=== PATIENT | male | born 1955 | race Caucasian/White ===

== ENCOUNTER 2021-12-02 23:36 | Emergency (ER) | payer MEDICARE ==
[~2021-12-02] VITALS: Ht 182.9 cm; Wt 79.4 kg
[2021-12-03 00:12] LABS: BASOPHILS % 0.6 % (0.0-1.0); EOSINOPHILS # (AUTO) 0.2 (0.0-0.4); EOSINOPHILS % 2.3 % (0.0-6.0); HEMATOCRIT 39.4 % (38.2-49.6); HEMOGLOBIN 12.3 g/dL (14.0-18.0); LYMPHOCYTES # (AUTO) 1.4 (1.0-3.2); LYMPHOCYTES % 20.9 % (18.0-39.1); MEAN CORPUSCULAR HEMOGLOBIN 28.5 pg (28-32); MEAN CORPUSCULAR HGB CONC 31.2 g/dL (31-35); MEAN CORPUSCULAR VOLUME 91.2 fL (81-99); MONOCYTES # (AUTO) 0.5 (0.2-0.8); MONOCYTES % 8.2 % (4.4-11.3); NEUTROPHILS # (AUTO) 4.4 (2.1-6.9); NEUTROPHILS % 67.8 % (38.7-80.0); PLATELET COUNT 111 x10e3/uL (140-360); RED BLOOD COUNT 4.32 x10e6/uL (4.3-5.7); RED CELL DISTRIBUTION WIDTH 13.2 % (11.7-14.4)
[2021-12-03] MEDS ORDERED: KETOROLAC TROMETHAMINE 30 MG/ML VIAL IV STA (00:22)
[2021-12-03 00:28] LABS: ALANINE AMINOTRANSFERASE 28 IU/L (0-55); ALBUMIN 4.1 g/dL (3.5-5.0); ALBUMIN/GLOBULIN RATIO 1.2 (0.8-2.0); ALKALINE PHOSPHATASE 79 IU/L (40-150); BLOOD UREA NITROGEN 15 mg/dL (7-26); BUN/CREATININE RATIO 19 (6-25); CALCIUM 8.9 mg/dL (8.4-10.2); CARBON DIOXIDE 25 mmol/L (22-29); CHLORIDE 108 mmol/L (98-107); CREATINE KINASE 421 IU/L (30-200); GLUCOSE 127 mg/dL (74-118); SODIUM 143 mmol/L (136-145)
[2021-12-03] MEDS ORDERED: DIATRIZOATE MEGL/DIATRIZOA SOD 30 ML BTL PO ONE (00:30)
[2021-12-03 00:43] LABS: CLARITY,URINE CLEAR (CLEAR); COLOR,URINE YELLOW (YELLOW); KETONES,URINE NEGATIVE (NEGATIVE); LEUKOCYTE ESTERASE ,URINE NEGATIVE (NEGATIVE); NITRITE,URINE NEGATIVE (NEGATIVE); PROTEIN,URINE DIPSTICK NEGATIVE (NEGATIVE); URINE UROBILINOGEN 0.2 mg/dL (0.2 - 1)
[2021-12-03 00:53] LABS: BACTERIA,URINE FEW /HPF; EPITHELIAL CELLS,URINE FEW /LPF; MUCUS,URINE MODERATE (RARE); WBC,URINE (MAN) 0-5 /HPF (0-5)
== END 2021-12-03 02:38 | disposition home or self-care (01) ==
LOC: ER 23:50
DX: R10.30 Lower abdominal pain, unspecified (principal); K42.9 Umbilical hernia without obstruction or gangrene; K40.90 Unilateral inguinal hernia, without obstruction or gangrene, not specified as recurrent; I10 Essential (primary) hypertension; I25.10 Atherosclerotic heart disease of native coronary artery without angina pectoris; K21.9 Gastro-esophageal reflux disease without esophagitis; Z95.1 Presence of aortocoronary bypass graft; Z95.5 Presence of coronary angioplasty implant and graft; Z98.84 Bariatric surgery status
CPT/HCPCS: 36415; 74177; 80053; 81001; 82550; 82553; 83690; 84484; 85025; 93005; 99284; J1885; Q9963

== ENCOUNTER → 2022-03-13 | Day surgery (SDC) | payer MEDICARE ==
[2022-03-11 12:25] LABS: BASOPHILS # (AUTO) 0.1 (0.0-0.1); BASOPHILS % 0.8 % (0.0-1.0); EOSINOPHILS # (AUTO) 0.3 (0.0-0.4); EOSINOPHILS % 4.1 % (0.0-6.0); HEMATOCRIT 44.1 % (38.2-49.6); HEMOGLOBIN 13.6 g/dL (14.0-18.0); LYMPHOCYTES # (AUTO) 2.2 (1.0-3.2); LYMPHOCYTES % 32.7 % (18.0-39.1); MEAN CORPUSCULAR HEMOGLOBIN 29.2 pg (28-32); MEAN CORPUSCULAR HGB CONC 30.8 g/dL (31-35); MEAN CORPUSCULAR VOLUME 94.6 fL (81-99); MONOCYTES # (AUTO) 0.6 (0.2-0.8); NEUTROPHILS # (AUTO) 3.6 (2.1-6.9); NEUTROPHILS % 53.2 % (38.7-80.0); PLATELET COUNT 133 x10e3/uL (140-360); RED BLOOD COUNT 4.66 x10e6/uL (4.3-5.7); RED CELL DISTRIBUTION WIDTH 13.3 % (11.7-14.4)
[~2022-03-13] MED LIST: BUPIVACAINE HCL 0.5% INJ 30 ML VIAL INJ ONE; BUPRENORPHIN-N1 EACH SL; CLOPIDOGREL75 MG PO; DEXAMETHASONE SOD PHOS INJ 4 MG/ML SDV ONE; FENTANYL CITRATE/PF 100MCG/2 ML INJ ONE; IMDUR PO; KETAMINE HCL INJ 50 MG/ML 10 ML VIAL ONE; LIDOCAINE HCL 2% LOCAL INJ 5 ML SDV VIAL INJ ONE; LIPITOR20 MG PO; METOPROLOL PO; ONDANSETRON HCL INJ 2MG/ML 2ML 2 MG/ML VIAL ONE; POVIDONE IODINE 0.05% 0.05 % ML PO ONE; PROPOFOL IV EMULSION 10 MG/ML 20 ML VIAL ONE; PROTONIX20 MG PO; SEVOFLURANE INHAL SOLN 250 ML PEN BTL ONE; VITAMIN B-1100 M1 PO; VITAMIN B122500 MCG PO; VITAMIN D3125 MCG PO; [UNRECOGNIZED DRUG - OTHER] PO; [UNRECOGNIZED DRUG - OTHER] PO
[2022-03-13 14:15] VITALS: BP 138/87
== END | disposition home or self-care (01) ==
LOC: OR 10:16
PROVIDERS: ATTEND Podiatrist Foot & Ankle Surgery
DX: M20.41 Other hammer toe(s) (acquired), right foot (principal); M21.271 Flexion deformity, right ankle and toes; G47.33 Obstructive sleep apnea (adult) (pediatric); J44.9 Chronic obstructive pulmonary disease, unspecified; I25.2 Old myocardial infarction; I10 Essential (primary) hypertension; E78.5 Hyperlipidemia, unspecified; I25.810 Atherosclerosis of coronary artery bypass graft(s) without angina pectoris; E03.9 Hypothyroidism, unspecified; G89.29 Other chronic pain; Z01.810 Encounter for preprocedural cardiovascular examination; Z01.812 Encounter for preprocedural laboratory examination; Z01.818 Encounter for other preprocedural examination; Z79.02 Long term (current) use of antithrombotics/antiplatelets; Z79.899 Other long term (current) drug therapy; Z95.1 Presence of aortocoronary bypass graft; Z95.5 Presence of coronary angioplasty implant and graft; Z86.19 Personal history of other infectious and parasitic diseases; Z87.891 Personal history of nicotine dependence
CPT/HCPCS: 28285; 28308; 36415; 71046; 85025; 93005; C1713 ×2; J0690; J1100; J2001; J2405; J2704; J3010

== ENCOUNTER 2022-05-21 18:31 | Inpatient (IN) | payer MEDICARE ==
[~2022-05-21] VITALS: Ht 182.9 cm; Wt 82.1 kg
[~2022-05-21 18:31] MED LIST changes: -BUPIVACAINE HCL 0.5% INJ 30 ML VIAL INJ ONE; +EPHEDRINE SULFATE INJ 50 MG/ML VIAL ONE; -FENTANYL CITRATE/PF 100MCG/2 ML INJ ONE; -KETAMINE HCL INJ 50 MG/ML 10 ML VIAL ONE
[2022-05-21] MEDS ORDERED: FENTANYL CITRATE/PF 100MCG/2 ML INJ ONE (18:40)
[2022-05-21 19:26] LABS: BASOPHILS # (AUTO) 0.1 (0.0-0.1); BASOPHILS % 0.5 % (0.0-1.0); EOSINOPHILS # (AUTO) 0.2 (0.0-0.4); EOSINOPHILS % 2.2 % (0.0-6.0); HEMATOCRIT 47.4 % (38.2-49.6); HEMOGLOBIN 14.3 g/dL (14.0-18.0); LYMPHOCYTES # (AUTO) 1.7 (1.0-3.2); LYMPHOCYTES % 18.3 % (18.0-39.1); MEAN CORPUSCULAR HEMOGLOBIN 29.7 pg (28-32); MEAN CORPUSCULAR HGB CONC 30.2 g/dL (31-35); MEAN CORPUSCULAR VOLUME 98.3 fL (81-99); MONOCYTES # (AUTO) 0.7 (0.2-0.8); MONOCYTES % 7.8 % (4.4-11.3); NEUTROPHILS # (AUTO) 6.7 (2.1-6.9); PLATELET COUNT 141 x10e3/uL (140-360); RED BLOOD COUNT 4.82 x10e6/uL (4.3-5.7); RED CELL DISTRIBUTION WIDTH 12.9 % (11.7-14.4)
[2022-05-21] MEDS ORDERED: DIATRIZOATE MEGL/DIATRIZOA SOD 30 ML BTL PO ONE (19:36)
[2022-05-21 19:46] LABS: ALBUMIN 4.2 g/dL (3.5-5.0); ALBUMIN/GLOBULIN RATIO 1.2 (0.8-2.0); ANION GAP 18.8 mmol/L (8-16); CALCIUM 9.6 mg/dL (8.4-10.2); CREATININE, SERUM 0.96 mg/dL (0.72-1.25); POTASSIUM 4.8 mmol/L (3.5-5.1)
[2022-05-21 20:00] VITALS: BP 134/70
[2022-05-21 20:04] LABS: CLARITY,URINE CLEAR (CLEAR); COLOR,URINE YELLOW (YELLOW); KETONES,URINE TRACE (NEGATIVE); LEUKOCYTE ESTERASE ,URINE NEGATIVE (NEGATIVE); NITRITE,URINE NEGATIVE (NEGATIVE); PROTEIN,URINE DIPSTICK 1+ (NEGATIVE); URINE UROBILINOGEN 0.2 mg/dL (0.2 - 1)
[2022-05-21 20:15] LABS: BACTERIA,URINE FEW /HPF; EPITHELIAL CELLS,URINE RARE /LPF; WBC,URINE (MAN) 0-5 /HPF (0-5)
[2022-05-21] MEDS ORDERED: IOPAMIDOL 370 MG/ML 100 ML INFUS..BTL INJ ONE (20:31)
[2022-05-21] MEDS ORDERED: ONDANSETRON HCL INJ 2MG/ML 2ML 2 MG/ML VIAL IV PRN (22:15)
[2022-05-21] MEDS: SODIUM CHLORIDE 0.9% 1000ML 1,000 ML IV SCH (22:34)
[2022-05-21] MEDS: Morphine 4mg INJECTION 4 MG/ML INJ IV PRN (22:36)
[2022-05-21] MEDS ORDERED: ONDANSETRON HCL INJ 2MG/ML 2ML 2 MG/ML VIAL ONE (22:37)
[2022-05-21] MEDS ORDERED: CEFTRIAXONE 1 GM VIAL ONE (22:37)
[2022-05-21] MEDS ORDERED: SODIUM CHLORIDE 0.9% 1000ML 1,000 ML ONE (22:37)
[2022-05-21] MEDS ORDERED: Morphine 2mg Syringe 2 MG/ML SYR ONE (22:40)
[2022-05-21 23:39] VITALS: BP 134/70
[2022-05-21] MEDS ORDERED: SIMETHICONE 80 MG CHEW PO PRN (23:45)
[2022-05-21] MEDS ORDERED: DOCUSATE SODIUM 100 MG CAP PO PRN (23:45)
[2022-05-21] MEDS ORDERED: ALBUTEROL/IPRATROPIUM 3 ML NEB NEB PRN (23:45)
[2022-05-21] MEDS ORDERED: HYDRALAZINE HCL 20 MG/ML VIAL IV PRN (23:45)
[2022-05-21] MEDS ORDERED: DIPHENHYDRAMINE HCL 25 MG CAP PO PRN (23:45)
[2022-05-21] MEDS ORDERED: BENZONATATE 100 MG CAP PO PRN (23:45)
[2022-05-21] MEDS ORDERED: MELATONIN 5 MG TABLET PO PRN (23:45)
[2022-05-21] MEDS ORDERED: POTASSIUM CHLORIDE 20 MEQ TAB CR PO PRN (23:45)
[2022-05-21] MEDS ORDERED: LIDOCAINE 4% PATCH TP PRN (23:45)
[2022-05-21] MEDS ORDERED: DEXTROSE 50% SYRINGE 50 ML IV PRN (23:45)
[2022-05-22] VITALS (8 sets, daily range): BP systolic 100–147; BP diastolic 61–99
[2022-05-22] MEDS: Morphine 4mg INJECTION 4 MG/ML INJ IV PRN ×5 (06:18→21:51)
[2022-05-22 06:59] LABS: BASOPHILS % 0.5 % (0.0-1.0); EOSINOPHILS # (AUTO) 0.2 (0.0-0.4); EOSINOPHILS % 2.6 % (0.0-6.0); HEMATOCRIT 40.9 % (38.2-49.6); HEMOGLOBIN 12.4 g/dL (14.0-18.0); LYMPHOCYTES % 33.3 % (18.0-39.1); MEAN CORPUSCULAR HEMOGLOBIN 29.4 pg (28-32); MEAN CORPUSCULAR HGB CONC 30.3 g/dL (31-35); MEAN CORPUSCULAR VOLUME 96.9 fL (81-99); MONOCYTES # (AUTO) 0.7 (0.2-0.8); MONOCYTES % 11.2 % (4.4-11.3); NEUTROPHILS # (AUTO) 3.2 (2.1-6.9); NEUTROPHILS % 52.2 % (38.7-80.0); PLATELET COUNT 123 x10e3/uL (140-360); RED BLOOD COUNT 4.22 x10e6/uL (4.3-5.7); RED CELL DISTRIBUTION WIDTH 12.7 % (11.7-14.4)
[2022-05-22 07:23] LABS: ANION GAP 12.9 mmol/L (8-16); CALCIUM 8.6 mg/dL (8.4-10.2); CREATININE, SERUM 0.7 mg/dL (0.72-1.25); POTASSIUM 3.9 mmol/L (3.5-5.1)
[2022-05-22] MEDS: PANTOPRAZOLE SOD 40 MG TABEC PO SCH (08:19)
[2022-05-22] MEDS: SODIUM CHLORIDE 0.9% 1000ML 1,000 ML IV SCH ×2 (08:19→18:34)
[2022-05-22] MEDS ORDERED: FUROSEMIDE INJ 10 MG/ML 4 ML VIAL ONE (13:08)
[2022-05-22] MEDS: PHENAZOPYRIDINE HCL 100 MG TAB PO PRN ×2 (16:26→21:50)
[2022-05-23] VITALS (8 sets, daily range): BP systolic 95–131; BP diastolic 63–83
[2022-05-23] MEDS: HYDROMORPHONE 1MG/1ML INJ IV PRN ×7 (04:05→23:27)
[2022-05-23] MEDS: SODIUM CHLORIDE 0.9% 1000ML 1,000 ML IV SCH ×3 (04:09→20:59)
[2022-05-23 05:55] LABS: BASOPHILS % 0.6 % (0.0-1.0); EOSINOPHILS # (AUTO) 0.2 (0.0-0.4); EOSINOPHILS % 3.7 % (0.0-6.0); HEMATOCRIT 45.4 % (38.2-49.6); LYMPHOCYTES # (AUTO) 1.7 (1.0-3.2); LYMPHOCYTES % 33.4 % (18.0-39.1); MEAN CORPUSCULAR HEMOGLOBIN 29.7 pg (28-32); MEAN CORPUSCULAR HGB CONC 28.6 g/dL (31-35); MEAN CORPUSCULAR VOLUME 103.9 fL (81-99); MONOCYTES # (AUTO) 0.5 (0.2-0.8); MONOCYTES % 8.8 % (4.4-11.3); NEUTROPHILS # (AUTO) 2.7 (2.1-6.9); NEUTROPHILS % 53.3 % (38.7-80.0); PLATELET COUNT 114 x10e3/uL (140-360); RED BLOOD COUNT 4.37 x10e6/uL (4.3-5.7); RED CELL DISTRIBUTION WIDTH 13.1 % (11.7-14.4)
[2022-05-23 07:19] LABS: ALBUMIN 3.4 g/dL (3.5-5.0); ANION GAP 16.1 mmol/L (8-16); CALCIUM 8.8 mg/dL (8.4-10.2); CHOL/HDL RATIO 2.6 (3.9-4.7); CREATININE, SERUM 0.67 mg/dL (0.72-1.25); POTASSIUM 4.1 mmol/L (3.5-5.1)
[2022-05-23 07:28] LABS: THYROID STIMULATING HORMONE 2.473 uIU/mL (0.350-4.940)
[2022-05-23] MEDS ORDERED: METOPROLOL 25 MG PO SCH (09:00)
[2022-05-23] MEDS ORDERED: IMDUR PO SCH (09:00)
[2022-05-23] MEDS: PANTOPRAZOLE SOD 40 MG TABEC PO SCH (10:03)
[2022-05-23] MEDS: ISOSORBIDE MONONITRATE 30 MG TAB CR PO SCH (10:04)
[2022-05-23] MEDS: ATORVASTATIN 20 MG TAB PO SCH (10:04)
[2022-05-23] MEDS: METOPROLOL SUCCINATE 25 MG TAB XL PO SCH (10:17)
[2022-05-23] MEDS ORDERED: ONDANSETRON HCL 4 MG ORAL DISINTEGRATING TAB PO PRN (14:00)
[2022-05-23] MEDS: ACETAMINOPHEN 325 MG TAB PO PRN (20:08)
[2022-05-24] VITALS (8 sets, daily range): BP systolic 104–156; BP diastolic 63–90
[2022-05-24] MEDS: HYDROMORPHONE 1MG/1ML INJ IV PRN ×6 (02:25→22:35)
[2022-05-24] MEDS: SODIUM CHLORIDE 0.9% 1000ML 1,000 ML IV SCH (05:30)
[2022-05-24 07:05] LABS: BASOPHILS % 0.6 % (0.0-1.0); EOSINOPHILS # (AUTO) 0.2 (0.0-0.4); EOSINOPHILS % 4.5 % (0.0-6.0); HEMATOCRIT 41.6 % (38.2-49.6); HEMOGLOBIN 12.7 g/dL (14.0-18.0); LYMPHOCYTES % 39.9 % (18.0-39.1); MEAN CORPUSCULAR HEMOGLOBIN 29.6 pg (28-32); MEAN CORPUSCULAR HGB CONC 30.5 g/dL (31-35); MONOCYTES # (AUTO) 0.5 (0.2-0.8); MONOCYTES % 8.8 % (4.4-11.3); NEUTROPHILS # (AUTO) 2.4 (2.1-6.9); PLATELET COUNT 100 x10e3/uL (140-360); RED BLOOD COUNT 4.29 x10e6/uL (4.3-5.7); RED CELL DISTRIBUTION WIDTH 12.8 % (11.7-14.4)
[2022-05-24 07:41] LABS: ANION GAP 12.9 mmol/L (8-16); CALCIUM 8.4 mg/dL (8.4-10.2); CREATININE, SERUM 0.61 mg/dL (0.72-1.25); POTASSIUM 3.9 mmol/L (3.5-5.1)
[2022-05-24] MEDS ORDERED: IOPAMIDOL 610MG/1ML 300 MG/ML VIAL IV ONE (07:59)
[2022-05-24] MEDS: PANTOPRAZOLE SOD 40 MG TABEC PO SCH (09:25)
[2022-05-24] MEDS: METOPROLOL SUCCINATE 25 MG TAB XL PO SCH (09:28)
[2022-05-24] MEDS: ATORVASTATIN 20 MG TAB PO SCH (09:28)
[2022-05-24] MEDS: ISOSORBIDE MONONITRATE 30 MG TAB CR PO SCH (09:28)
[2022-05-24] MEDS ORDERED: TRAMADOL HCL 50 MG TAB PO PRN (12:00)
[2022-05-24] MEDS: LACTULOSE SYRUP 20 GM/30 ML UDC PO SCH ×2 (15:35→21:14)
[2022-05-24] MEDS: ACETAMINOPHEN 325 MG TAB PO PRN (15:43)
[2022-05-24] MEDS: KETOROLAC TROMETHAMINE 30 MG/ML VIAL IV SCH (17:32)
[2022-05-24] MEDS: DOCUSATE SODIUM 100 MG CAP PO SCH (17:32)
[2022-05-25] MEDS: KETOROLAC TROMETHAMINE 30 MG/ML VIAL IV SCH ×3 (00:38→12:22)
[2022-05-25 00:44] VITALS: BP 124/73
[2022-05-25 06:04] VITALS: BP 119/83
[2022-05-25 06:29] LABS: BASOPHILS % 0.1 % (0.0-1.0); EOSINOPHILS % 0.6 % (0.0-6.0); HEMATOCRIT 41.5 % (38.2-49.6); HEMOGLOBIN 12.7 g/dL (14.0-18.0); LYMPHOCYTES # (AUTO) 2.1 (1.0-3.2); LYMPHOCYTES % 29.6 % (18.0-39.1); MEAN CORPUSCULAR HEMOGLOBIN 29.5 pg (28-32); MEAN CORPUSCULAR HGB CONC 30.6 g/dL (31-35); MEAN CORPUSCULAR VOLUME 96.3 fL (81-99); MONOCYTES # (AUTO) 0.6 (0.2-0.8); MONOCYTES % 8.7 % (4.4-11.3); NEUTROPHILS # (AUTO) 4.3 (2.1-6.9); NEUTROPHILS % 60.7 % (38.7-80.0); PLATELET COUNT 129 x10e3/uL (140-360); RED BLOOD COUNT 4.31 x10e6/uL (4.3-5.7); RED CELL DISTRIBUTION WIDTH 12.4 % (11.7-14.4)
[2022-05-25 06:44] LABS: ANION GAP 13.9 mmol/L (8-16); CREATININE, SERUM 0.65 mg/dL (0.72-1.25); POTASSIUM 3.9 mmol/L (3.5-5.1)
[2022-05-25 07:41] VITALS: BP 126/78
[2022-05-25 08:11] VITALS: BP 126/78
[2022-05-25] MEDS: PANTOPRAZOLE SOD 40 MG TABEC PO SCH (08:26)
[2022-05-25] MEDS: METOPROLOL SUCCINATE 25 MG TAB XL PO SCH (08:30)
[2022-05-25] MEDS: ISOSORBIDE MONONITRATE 30 MG TAB CR PO SCH (08:32)
[2022-05-25] MEDS: LACTULOSE SYRUP 20 GM/30 ML UDC PO SCH (08:32)
[2022-05-25] MEDS: DOCUSATE SODIUM 100 MG CAP PO SCH (08:32)
[2022-05-25] MEDS: ATORVASTATIN 20 MG TAB PO SCH (08:34)
[2022-05-25] MEDS: HYDROMORPHONE 1MG/1ML INJ IV PRN (10:06)
[2022-05-25 12:48] VITALS: BP 127/77
[2022-05-25] MEDS ORDERED: CEFUROXIME250 MG PO (13:49)
[2022-05-25] MEDS ORDERED: ASPIRIN ENTERI325 MG PO (13:53)
== END 2022-05-25 14:51 | disposition home or self-care (01) | DRG 661 ==
LOC: ER 19:30 → ERHOLD 22:18 → MED/SURG3 23:29
PROVIDERS: ADMIT Internal Medicine; ATTEND Internal Medicine
PROC: 0T778DZ Dilation of Left Ureter with Intraluminal Device, Via Natural or Artificial Opening Endoscopic (ICD-10-PCS; principal; 2022-05-24 07:59)
PROC: BT1F1ZZ Fluoroscopy of Left Kidney, Ureter and Bladder using Low Osmolar Contrast (ICD-10-PCS; 2022-05-24 07:59)
DX: N13.1 Hydronephrosis with ureteral stricture, not elsewhere classified (principal); G89.4 Chronic pain syndrome; I25.10 Atherosclerotic heart disease of native coronary artery without angina pectoris; Z95.1 Presence of aortocoronary bypass graft; K40.90 Unilateral inguinal hernia, without obstruction or gangrene, not specified as recurrent; N13.2 Hydronephrosis with renal and ureteral calculous obstruction; R31.9 Hematuria, unspecified; D69.6 Thrombocytopenia, unspecified; R31.29 Other microscopic hematuria; Z20.822 Contact with and (suspected) exposure to COVID-19; E78.00 Pure hypercholesterolemia, unspecified; Z98.84 Bariatric surgery status; K59.00 Constipation, unspecified; I25.2 Old myocardial infarction; I95.2 Hypotension due to drugs; T40.605A Adverse effect of unspecified narcotics, initial encounter; Z95.5 Presence of coronary angioplasty implant and graft
CPT/HCPCS: 36415; 74176; 74420; 78708; 80048; 80053; 80061; 81001; 83690; 83735; 83880; 84443; 85025; 87086; 93005; 93306; 94799; 99252; 99284; A9562; C1758; C2617; J0692; J0696; J1100; J1170; J1885; J1940; J2001; J2270; J2405; J3010; J7030; Q9963; Q9967

== ENCOUNTER 2022-06-12 12:00 | Observation (INO) | payer MEDICARE ==
[~2022-06-12] VITALS: Ht 182.9 cm; Wt 82.1 kg
[~2022-06-12 12:00] MED LIST changes: +ASPIRIN ENTERI325 MG PO; +CEFTRIAXONE 1 GM VIAL ONE; +CEFUROXIME250 MG PO; +CORAL CALCIUM1 GM PO; -DEXAMETHASONE SOD PHOS INJ 4 MG/ML SDV ONE; -EPHEDRINE SULFATE INJ 50 MG/ML VIAL ONE; +FEROSUL325 MG PO; +ISOSORBIDE MONO30 MG PO; -LIDOCAINE HCL 2% LOCAL INJ 5 ML SDV VIAL INJ ONE; -ONDANSETRON HCL INJ 2MG/ML 2ML 2 MG/ML VIAL ONE; -POVIDONE IODINE 0.05% 0.05 % ML PO ONE; -PROPOFOL IV EMULSION 10 MG/ML 20 ML VIAL ONE; -SEVOFLURANE INHAL SOLN 250 ML PEN BTL ONE; +TOPROL XL25 MG PO
[2022-06-12] MEDS ORDERED: DEXAMETHASONE SOD PHOS INJ 4 MG/ML SDV ONE (12:24)
[2022-06-12] MEDS ORDERED: LIDOCAINE HCL 2% LOCAL INJ 5 ML SDV VIAL INJ ONE (12:24)
[2022-06-12] MEDS ORDERED: SEVOFLURANE INHAL SOLN 250 ML PEN BTL ONE (12:24)
[2022-06-12] MEDS ORDERED: POVIDONE IODINE 0.05% 0.05 % ML PO ONE (12:24)
[2022-06-12] MEDS ORDERED: ONDANSETRON HCL INJ 2MG/ML 2ML 2 MG/ML VIAL ONE (12:24)
[2022-06-12] MEDS ORDERED: PROPOFOL IV EMULSION 10 MG/ML 20 ML VIAL ONE (12:24)
[2022-06-12] MEDS ORDERED: IOPAMIDOL 370 MG/ML 100 ML INFUS..BTL INJ ONE (13:10)
[2022-06-12] MEDS ORDERED: FENTANYL CITRATE/PF 100MCG/2 ML INJ ONE (14:31)
[2022-06-12 14:43] LABS: BASOPHILS % 0.6 % (0.0-1.0); EOSINOPHILS # (AUTO) 0.2 (0.0-0.4); EOSINOPHILS % 3.3 % (0.0-6.0); HEMATOCRIT 45.4 % (38.2-49.6); HEMOGLOBIN 13.7 g/dL (14.0-18.0); LYMPHOCYTES # (AUTO) 1.1 (1.0-3.2); LYMPHOCYTES % 21.9 % (18.0-39.1); MEAN CORPUSCULAR HEMOGLOBIN 29.5 pg (28-32); MEAN CORPUSCULAR HGB CONC 30.2 g/dL (31-35); MEAN CORPUSCULAR VOLUME 97.6 fL (81-99); MONOCYTES # (AUTO) 0.3 (0.2-0.8); NEUTROPHILS # (AUTO) 3.6 (2.1-6.9); PLATELET COUNT 113 x10e3/uL (140-360); RED BLOOD COUNT 4.65 x10e6/uL (4.3-5.7); RED CELL DISTRIBUTION WIDTH 12.4 % (11.7-14.4)
[2022-06-12 15:00] VITALS: BP_SYST 128; BP_SYST 130; BP_DIAS 74; BP_DIAS 78
[2022-06-12] MEDS ORDERED: ACETAMINOPHEN 325 MG TAB PO PRN (16:30)
[2022-06-12] MEDS ORDERED: BENZONATATE 100 MG CAP PO PRN (16:30)
[2022-06-12] MEDS ORDERED: HYDRALAZINE HCL 20 MG/ML VIAL IV PRN (16:30)
[2022-06-12] MEDS ORDERED: DEXTROSE 50% SYRINGE 50 ML IV PRN (16:30)
[2022-06-12] MEDS ORDERED: SIMETHICONE 80 MG CHEW PO PRN (16:30)
[2022-06-12] MEDS ORDERED: DOCUSATE SODIUM 100 MG CAP PO PRN (16:30)
[2022-06-12] MEDS ORDERED: LIDOCAINE 4% PATCH TP PRN (16:30)
[2022-06-12] MEDS ORDERED: MELATONIN 5 MG TABLET PO PRN (16:30)
[2022-06-12] MEDS ORDERED: POTASSIUM CHLORIDE 20 MEQ TAB CR PO PRN (16:30)
[2022-06-12] MEDS ORDERED: DIPHENHYDRAMINE HCL 25 MG CAP PO PRN (16:30)
[2022-06-12] MEDS ORDERED: ALBUTEROL/IPRATROPIUM 3 ML NEB NEB PRN (16:30)
[2022-06-12 16:44] VITALS: BP 125/82
[2022-06-12] MEDS: METOPROLOL SUCCINATE 25 MG TAB XL PO SCH (17:00)
[2022-06-12] MEDS: ONDANSETRON HCL INJ 2MG/ML 2ML 2 MG/ML VIAL IV PRN ×2 (17:24→22:08)
[2022-06-12] MEDS: HYDROMORPHONE 1MG/1ML INJ IV PRN ×2 (17:25→22:07)
[2022-06-12] MEDS ORDERED: TAMSULOSIN HCL 0.4 MG CAP PO SCH (19:10)
[2022-06-12] MEDS: HYDROCODONE/APAP 5MG-325MG TAB PO PRN (19:39)
[2022-06-12] MEDS: DEXTROSE 5%/0.45% SOD CHL 1,000 ML IV SCH (22:58)
[2022-06-13] MEDS: HYDROCODONE/APAP 5MG-325MG TAB PO PRN ×2 (01:43→07:50)
[2022-06-13] MEDS: HYDROMORPHONE 1MG/1ML INJ IV PRN ×2 (05:05→09:32)
[2022-06-13] MEDS: DEXTROSE 5%/0.45% SOD CHL 1,000 ML IV SCH (05:26)
[2022-06-13 05:31] VITALS: BP 125/82
[2022-06-13 05:34] LABS: BASOPHILS % 0.3 % (0.0-1.0); EOSINOPHILS % 0.1 % (0.0-6.0); HEMATOCRIT 42.6 % (38.2-49.6); HEMOGLOBIN 12.8 g/dL (14.0-18.0); LYMPHOCYTES # (AUTO) 1.5 (1.0-3.2); LYMPHOCYTES % 22.2 % (18.0-39.1); MEAN CORPUSCULAR HEMOGLOBIN 29.3 pg (28-32); MEAN CORPUSCULAR VOLUME 97.5 fL (81-99); MONOCYTES # (AUTO) 0.5 (0.2-0.8); MONOCYTES % 7.5 % (4.4-11.3); NEUTROPHILS # (AUTO) 4.8 (2.1-6.9); NEUTROPHILS % 69.6 % (38.7-80.0); PLATELET COUNT 124 x10e3/uL (140-360); RED BLOOD COUNT 4.37 x10e6/uL (4.3-5.7)
[2022-06-13 05:46] LABS: CALCIUM 8.6 mg/dL (8.4-10.2); CREATININE, SERUM 0.66 mg/dL (0.72-1.25)
[2022-06-13] MEDS ORDERED: PANTOPRAZOLE SOD 40 MG TABEC PO SCH (07:30)
[2022-06-13] MEDS ORDERED: TAMSULOSIN HCL 0.4 MG CAP PO ONE (08:00)
[2022-06-13 08:27] VITALS: BP 115/74
[2022-06-13] MEDS: METOPROLOL SUCCINATE 25 MG TAB XL PO SCH (08:31)
[2022-06-13 08:44] VITALS: BP 115/74
[2022-06-13] MEDS ORDERED: ATORVASTATIN 20 MG TAB PO SCH (09:00)
[2022-06-13] MEDS ORDERED: ISOSORBIDE MONONITRATE 30 MG TAB CR PO SCH (09:00)
[2022-06-13] MEDS: ONDANSETRON HCL INJ 2MG/ML 2ML 2 MG/ML VIAL IV PRN (09:32)
[2022-06-13 11:44] VITALS: BP 108/73
[2022-06-13] MEDS ORDERED: FENTANYL CITRATE/PF 100MCG/2 ML INJ ONE (12:33)
== END 2022-06-13 13:23 | disposition home or self-care (01) ==
LOC: OR 12:00 → PACU V 14:05 → MED/SURG2 14:54
PROVIDERS: ADMIT Internal Medicine; ATTEND Internal Medicine
DX: N20.1 Calculus of ureter (principal); Z96.0 Presence of urogenital implants; N28.89 Other specified disorders of kidney and ureter; Z01.818 Encounter for other preprocedural examination; T45.526A Underdosing of antithrombotic drugs, initial encounter; Z91.128 Patient's intentional underdosing of medication regimen for other reason; I25.10 Atherosclerotic heart disease of native coronary artery without angina pectoris; Z95.1 Presence of aortocoronary bypass graft; G89.4 Chronic pain syndrome; Z98.84 Bariatric surgery status; Z20.822 Contact with and (suspected) exposure to COVID-19
CPT/HCPCS: 36415 ×2; 52356; 71046; 74420; 80048; 85025 ×2; 94799 ×2; 97161; C1758 ×3; C1769 ×2; C2617; G0378 ×2; J0696; J1100; J1170 ×2; J2001; J2405 ×2; J2704; J3010 ×2; Q9967; S0164; U0002

== ENCOUNTER 2023-12-03 09:24 | Emergency (ER) | payer MEDICARE ==
[~2023-12-03] VITALS: Ht 182.9 cm; Wt 86.2 kg
[~2023-12-03 09:24] MED LIST changes: +BENZONATATE200 MG PO; -CEFTRIAXONE 1 GM VIAL ONE; +PREDNISONE20 MG PO
[2023-12-03 09:32] VITALS: PULSE 78; RESP 18; TEMP 99.8; O2SAT 97
[2023-12-03] MEDS ORDERED: AZITHROMYCIN250 MG PO (09:44)
[2023-12-03] MEDS: DEXAMETHASONE SOD PHOS INJ 4 MG/ML SDV IM STA (10:02)
== END 2023-12-03 10:05 | disposition home or self-care (01) ==
LOC: FSED 09:27
DX: R50.9 Fever, unspecified (principal); J32.9 Chronic sinusitis, unspecified; R09.81 Nasal congestion; I10 Essential (primary) hypertension; E78.5 Hyperlipidemia, unspecified; I25.10 Atherosclerotic heart disease of native coronary artery without angina pectoris; K21.9 Gastro-esophageal reflux disease without esophagitis; I25.2 Old myocardial infarction; Z98.84 Bariatric surgery status; Z95.5 Presence of coronary angioplasty implant and graft
CPT/HCPCS: 99282; J1100

== ENCOUNTER 2024-03-02 13:35 | Emergency (ER) | payer MEDICARE ==
[~2024-03-02] VITALS: Ht 182.9 cm; Wt 85.7 kg
[~2024-03-02 13:35] MED LIST changes: +AZITHROMYCIN250 MG PO
[2024-03-02] MEDS: ASPIRIN 81 MG CHEW TAB PO ONE (14:31)
[2024-03-02] MEDS ORDERED: FLOMAX0.4 MG PO (14:57)
[2024-03-02] MEDS ORDERED: METFORMIN HCL500 MG PO (14:57)
[2024-03-02] MEDS ORDERED: FINASTERIDE5 MG PO (14:57)
[2024-03-02] MEDS ORDERED: PLAVIX75 MG PO (14:57)
[2024-03-02 16:15] VITALS: PULSE 68; RESP 16; TEMP 98.4; O2SAT 96
[2024-03-02] MEDS ORDERED: BROMFED DM COU118 ML PO (16:20)
== END 2024-03-02 17:10 | disposition home or self-care (01) ==
LOC: FSED 13:40
DX: R06.00 Dyspnea, unspecified (principal); J06.9 Acute upper respiratory infection, unspecified; I10 Essential (primary) hypertension; I25.10 Atherosclerotic heart disease of native coronary artery without angina pectoris; E78.5 Hyperlipidemia, unspecified; K21.9 Gastro-esophageal reflux disease without esophagitis; I25.2 Old myocardial infarction; Z95.1 Presence of aortocoronary bypass graft; Z95.5 Presence of coronary angioplasty implant and graft; Z98.84 Bariatric surgery status
CPT/HCPCS: 0223U; 71046; 80053; 81003; 82553; 83880; 84484; 85025; 85379; 87400; 99284